=== PATIENT | female | born 1960 | race Caucasian/White ===

== ENCOUNTER 2017-11-23 12:09 | Emergency (ER) | payer OTHER, BC ==
[2017-11-23] MEDS: KETOROLAC 30 MG INJ IM (13:04)
[2017-11-23 13:44] LABS: TROPONIN-I < 0.012 ng/ml (0.000-0.120)
== END 2017-11-23 14:38 | disposition home or self-care (01) ==
LOC: FTE 12:09
DX: M54.6 Pain in thoracic spine (principal); E03.9 Hypothyroidism, unspecified; I10 Essential (primary) hypertension
CPT/HCPCS: 36415; 71045; 84484; 93005; 96372; 99285-25